=== PATIENT | female | born 1990 | race African-American/Black ===

== ENCOUNTER 2020-01-09 14:53 | Emergency (ER) | payer SELFPAY ==
[~2020-01-09] VITALS: Ht 162.6 cm; Wt 9.0 kg
[2020-01-09] MEDS ORDERED: SODIUM CHLORIDE 0.9% 1,000 ML IV ONE (15:18)
[2020-01-09] MEDS ORDERED: ONDANSETRON HCL 4MG/2ML INJ IV STA (15:18)
[2020-01-09 15:57] LABS: CHLORIDE 111 mEq/L (98-107); HEMATOCRIT. 40.1 % (36.0-48.0); HEMOGLOBIN. 13.6 g/dL (12.0-16.0); MEAN CORPUSCULAR HEMOGLOBIN 30.3 pg (28.0-32.0); MEAN PLATELET VOLUME 9.1 fl (7.4-10.4); PLATELET 223 x1000/uL (130-400)
[2020-01-09 16:01] LABS: ETHANOL BLOOD < 10 mg/dL
[2020-01-09 16:06] LABS: HCG SCREEN NEGATIVE
[2020-01-09 17:43] LABS: PLATELET ESTIMATE NORMAL
[2020-01-09 17:44] VITALS: BP 105/64
== END 2020-01-09 17:47 | disposition home or self-care (01) ==
LOC: ER 14:53
DX: F10.10 Alcohol abuse, uncomplicated (principal); E86.0 Dehydration; R11.2 Nausea with vomiting, unspecified; J45.909 Unspecified asthma, uncomplicated; Y90.0 Blood alcohol level of less than 20 mg/100 ml
CPT/HCPCS: 36415; 80053; 80320; 83690; 84703; 85025; 96361; 96374; 99284; J2405; J7030; G0480